=== PATIENT | female | born 1995 | race Caucasian/White ===

== ENCOUNTER 2016-11-04 00:20 | Emergency (ER) | payer OTHER ==
[~2016-11-04] VITALS: Ht 162.6 cm; Wt 60.4 kg
[2016-11-04 00:26] VITALS: Ht 162.6 cm; Wt 60.4 kg
[2016-11-04] MEDS ORDERED: AMT10 PO (00:45)
[2016-11-04] MEDS ORDERED: CRY28 PO (00:45)
[2016-11-04] MEDS ORDERED: KETOROLAC TROMETHAMINE 15 MG/ML VIAL IV STA (00:48)
[2016-11-04] MEDS ORDERED: ACETAMINOPHEN 500 MG TAB PO STA (00:48)
[2016-11-04] MEDS ORDERED: ONDANSETRON INJ 2 MG/ML 2 ML VIAL IV STA (00:48)
[2016-11-04] MEDS ORDERED: SODIUM CHLORIDE 0.9% 1000ML 1,000 ML IV STA ×2 (00:48→02:34)
[2016-11-04] MEDS ORDERED: KETOROLAC TROMETHAMINE 30 MG/ML VIAL ONE (00:52)
[2016-11-04 01:11] LABS: URINE APPEARANCE CLEAR (CLEAR); URINE BILIRUBIN NEG (NEG); URINE COLOR YELLOW; URINE NITRITE NEG (NEG); URINE PH 6.5 (4.5-7.5); URINE SPECIFIC GRAVITY 1.021 (1.000-1.030); UROBILINOGEN NEG (NEG); ZZUR CULT IF INDIC CLEAN CATCH NO
[2016-11-04 01:12] LABS: MANUAL MICROSCOPIC REQUIRED? NO; REVIEW REQ? NO
[2016-11-04 01:38] LABS: BASO % 0.1 %; BASO ABS # 0.02 K/uL (0-0.2); COMPLETE YES; EOS % 0.3 %; HEMATOCRIT 44.5 % (37-47); IG% 0.4 %; LYMPH % 7.4 %; LYMPH ABS # 1.01 K/uL (1.2-3.4); MEAN CELL VOLUME 92.3 fL (80-100); MEAN CORPUSCULAR HEMOGLOBIN 32.2 pg (25-34); MEAN CORPUSCULAR HGB CONC 34.8 g/dl (32-36); MEAN PLATELET VOLUME 9.4 fL (7.4-10.4); MONO % 3.7 %; NEUT % 88.1 %; PLATELET COUNT 313 K/uL (130-400); RED BLOOD COUNT 4.82 M/uL (4.2-5.4); WHITE BLOOD COUNT 13.69 K/uL (4.8-10.8)
[2016-11-04] MEDS ORDERED: ONDANSETRON 4MG OD TAB PO ONE (01:45)
[2016-11-04] MEDS ORDERED: KETOROLAC TROMETHAMINE 30 MG/ML VIAL IV STA (02:34)
[2016-11-04 02:54] LABS: BUN/CREATININE RATIO 11.6 (10-20); CALCIUM 8.4 mg/dl (8.5-10.1); CREATININE 0.85 mg/dl (0.60-1.20); POTASSIUM 3.6 mmol/L (3.5-5.1)
[2016-11-04] MEDS ORDERED: CEFD300C2 PO (04:06)
--- NOTE | 2016-11-04 04:06 | EMERGENCY ROOM VISIT NOTE ---
History First contact with patient: 00:34 Chief Complaint: FLU LIKE SX Stated Complaint: SORETHROAT,HEADACHE,FEVER,NAUSEOUS,STOMACH ACHE History of Present Illness The patient is a 21 year old female who presents to the Emergency Room with complaints of flulike symptoms. The patient states that she has had a cough for 2 days. She has also had a sore throat, nausea, headache and anterior neck pain. The symptoms have been present for 2 days. The patient reports that this when she had difficulty swallowing due to the pain. She is unsure if she has had a fever, but does feel feverish. She has been taking ibuprofen and adamantly for symptoms. She denies any abdominal pain, shortness of breath, urinary symptoms, or neck stiffness. Review of Systems A complete 10 point review of systems was reviewed with the patient with pertinent positives and negatives as per history of present illness. All else were negative. Past Medical/Surgical History Appendectomy Social History Smoking Status: Never Smoker Alcohol Use: occasionally Marital Status: single Housing Status: lives with roommate Occupation Status: [employer] student Current/Historical Medications Scheduled Amitriptyline HCl (Amitriptyline HCl), 10 MG PO HS Cefdinir (Omnicef), 300 MG PO Q12H Ethinyl Estradiol/Norgestrel (Cryselle-28), 1 TAB PO DAILY Physical Exam Vital Signs Date Time Temp Pulse Resp B/P (MAP) Pulse Ox O2 Delivery O2 Flow Rate FiO2 11/04/16 04:19 36.9 81 20 115/64 98 11/04/16 02:28 99 18 115/80 98 Room Air 11/04/16 00:26 37.4 109 22 119/79 98 Room Air Physical Exam VITALS: Vitals are noted on the nurse's note and reviewed by myself. Vital signs stable. GENERAL: This is a 21-year-old female, in no acute distress, nondiaphoretic, well-developed well-nourished. SKIN: The skin was without rashes. EARS: External auditory canals clear, tympanic membranes pearly vergara without erythema or effusion bilaterally. EYES: Pupils equal round and reactive to light and accommodation. NOSE: Patent, turbinates without inflammation or discharge. MOUTH: Mucous membranes moist. Tonsils mildly enlarged and erythematous bilaterally. No exudate. Airway patent. NECK: Supple without nuchal rigidity. Anterior cervical lymphadenopathy, right greater than left. No meningismus. HEART: Regular rate and rhythm without murmurs gallops or rubs. LUNGS: Clear to auscultation bilaterally without wheezes, rales or rhonchi. ABDOMEN: Soft, nontender to palpation. NEURO: Patient was alert and oriented to person place and time. Medical Decision & Procedures Laboratory Results 11/04/16 01:23 Red Blood Count 4.82, Mean Corpuscular Volume 92.3, Mean Corpuscular Hemoglobin 32.2, Mean Corpuscular Hemoglobin Concent 34.8, Mean Platelet Volume 9.4, Neutrophils (%) (Auto) 88.1, Lymphocytes (%) (Auto) 7.4, Monocytes (%) (Auto) 3.7, Eosinophils (%) (Auto) 0.3, Basophils (%) (Auto) 0.1, Neutrophils # (Auto) 12.06, Lymphocytes # (Auto) 1.01, Monocytes # (Auto) 0.51, Eosinophils # (Auto) 0.04, Basophils # (Auto) 0.02 11/04/16 02:30 Test 11/04/16 01:00 11/04/16 01:23 11/04/16 02:30 Urine Color YELLOW Urine Appearance CLEAR (CLEAR) Urine pH 6.5 (4.5-7.5) Urine Specific [place] 1.021 (1.000-1.030) Urine Protein NEG (NEG) Urine Glucose (UA) NEG (NEG) Urine Ketones 1+ (NEG) Urine Occult Blood NEG (NEG) Urine Nitrite NEG (NEG) Urine Bilirubin NEG (NEG) Urine Urobilinogen NEG (NEG) Urine Leukocyte Esterase NEG (NEG) Influenza Type A Antigen Neg for Influ A (NEG) Influenza Type B Antigen Neg for Influ B (NEG) White Blood Count 13.69 K/uL (4.8-10.8) Red Blood Count 4.82 M/uL (4.2-5.4) Hemoglobin 15.5 g/dL (12.0-16.0) Hematocrit 44.5 % (37-47) Mean Corpuscular Volume 92.3 fL (80-100) Mean Corpuscular Hemoglobin 32.2 pg (25-34) Mean Corpuscular Hemoglobin Concent 34.8 g/dl (32-36) Platelet Count 313 K/uL (130-400) Mean Platelet Volume 9.4 fL (7.4-10.4) Neutrophils (%) (Auto) 88.1 % Lymphocytes (%) (Auto) 7.4 % Monocytes (%) (Auto) 3.7 % Eosinophils (%) (Auto) 0.3 % Basophils (%) (Auto) 0.1 % Neutrophils # (Auto) 12.06 K/uL (1.4-6.5) Lymphocytes # (Auto) 1.01 K/uL (1.2-3.4) Monocytes # (Auto) 0.51 K/uL (0.11-0.59) Eosinophils # (Auto) 0.04 K/uL (0-0.5) Basophils # (Auto) 0.02 K/uL (0-0.2) RDW Standard Deviation 43.2 fL (36.4-46.3) RDW Coefficient of Variation 12.7 % (11.5-14.5) Immature Granulocyte % (Auto) 0.4 % Immature Granulocyte # (Auto) 0.05 K/uL (0.00-0.02) Anion Gap 11.0 mmol/L (3-11) Est Creatinine Clear Calc Drug Dose 90.5 ml/min Estimated GFR () 113.5 Estimated GFR (Non- 97.9 BUN/Creatinine Ratio 11.6 (10-20) Calcium Level 8.4 mg/dl (8.5-10.1) Total Bilirubin 0.6 mg/dl (0.2-1) Aspartate Amino Transf (AST/SGOT) 17 U/L (15-37) Alanine Aminotransferase (ALT/SGPT) 22 U/L (12-78) Alkaline Phosphatase 59 U/L (45-117) Total Protein 7.1 gm/dl (6.4-8.2) Albumin 3.6 gm/dl (3.4-5.0) Globulin 3.5 gm/dl (2.5-4.0) Albumin/Globulin Ratio 1.0 (0.9-2) Monoscreen NEG (NEG) Medications Administered Medications (Trade) Dose Ordered Sig/Claribel Route Start Time Stop Time Status Last Admin Dose Admin Acetaminophen (Tylenol Tab) 1,000 mg NOW STAT PO 11/04/16 00:48 11/04/16 00:50 DC 11/04/16 01:49 1,000 MG Ondansetron HCl (Zofran Odt) 4 mg ONE ONCE PO 11/04/16 01:45 11/04/16 01:54 DC 11/04/16 01:49 4 MG Sodium Chloride 1,000 ml @ 999 mls/hr Q1H1M STAT IV 11/04/16 02:34 11/04/16 03:34 DC 11/04/16 02:54 999 MLS/HR Ketorolac Tromethamine (Toradol Inj) 30 mg NOW STAT IV 11/04/16 02:34 11/04/16 02:35 DC 11/04/16 02:43 30 MG Cefdinir (Omnicef Cap) 300 mg ONE STAT PO 11/04/16 04:08 11/04/16 04:09 DC 11/04/16 04:17 300 MG ED Course The patient was evaluated as above. Labs were drawn and IV access was obtained. Patient was medicated with IV Toradol and Zofran. She was hydrated with normal saline solution. Patient was reevaluated and findings were discussed. Patient will be treated for strep pharyngitis based on physical exam. Discharge instructions were reviewed with patient. She verbalized understanding of my assessment and treatment plan was discharged home in good condition. Medical Decision Differential diagnosis includes strep pharyngitis, influenza, viral, mononucleosis, meningitis, among others. The patient is a 21-year-old female who presents today complaining of flulike symptoms. Labs revealed unremarkable with mild leukocytosis. Influenza was negative. Monospot was negative. Chest x-ray was negative. Strep swab was negative, culture pending. Patient was reevaluated after receiving the Toradol and fluids and stated that she felt much better. I am suspicious of strep pharyngitis given the patient's presentation and will place her on Omnicef for this pending the culture. I'm not highly suspicious of meningitis given that the patient's pain is anterior. The patient states she has had meningitis in the past and this does not feel similar. Based on the patient's presentation and work up, I feel the patient is stable for outpatient treatment. The patient was educated to return to the emergency department for any worsening of their current condition or new/concerning symptoms. She will follow up with [facility]. Medication Reconcilliation Current Medication List: was personally reviewed by me Blood Pressure Screening Patient's blood pressure: Normal blood pressure Impression Primary Impression: Pharyngitis Departure Information Dispostion Home / Self-Care Condition GOOD Prescriptions Cefdinir (OMNICEF) 300 Mg Cap 300 MG PO Q12H for 10 Days, #20 CAP Prov: Letty Harvey .GERARD 11/04/16 Referrals No Doctor, Assigned (PCP) Patient Instructions My [facility] Additional Instructions For pain/fever control, you can use the following [id number] medicines ( if >12 yo): - Regular strength (325mg/tab) Tylenol (acetaminophen) 2 tabs every 4-6 hours as needed. Do not exceed 12 tablets in a 24 hour period. Avoid taking more than 4 grams (4000 mg) of Tylenol per day. This includes any other sources of acetaminophen you may take on a regular basis. - Regular strength (200 mg/tab) Advil (ibuprofen) up to 3 tabs every 6 hours as needed. Do not exceed a dose of 3200 mg per day. You may alternate these medications as discussed for better control of fever/ pain. You were prescribed Omnicef to be taken twice daily as prescribed. This is an antibiotic. All antibiotics have the potential to cause diarrhea. Stop this medication and contact a medical provider if you were to develop any significant adverse side effects including: wheezing, shortness of breath, passing out, vomiting, or a diffuse rash. Always take antibiotics as directed and COMPLETE the ENTIRE course regardless of the improvement of your symptoms. Rest and drink plenty of fluids. Follow-up with [facility] for recheck this week. Return to the emergency department with any worsening or new/concerning symptoms. Problem Qualifiers Primary Impression: Pharyngitis Pharyngitis/tonsillitis etiology: unspecified etiology Qualified Codes: J02.9 - Acute pharyngitis, unspecified
[2016-11-04] MEDS ORDERED: CEFDINIR 300 MG CAP PO STA (04:08)
[2016-11-04 04:19] VITALS: BP 115/64; PULSE 81; TEMP 36.9; O2SAT 98
--- NOTE | 2016-11-04 07:21 | DIAGNOSTIC IMAGING REPORT ---
CHEST 2 VIEWS ROUTINE HISTORY: cough, fever COMPARISON: None. FINDINGS: The lungs are clear. Cardiac silhouette is normal in size. No pleural effusions. No pneumothorax. IMPRESSION: No acute process. Electronically signed by: Giancarlo Bridges M.D. 11/04/2016 7:20 AM Dictated Date/Time: 11/04/2016 7:19 AM
== END 2016-11-04 04:21 | disposition home or self-care (01) ==
LOC: C.EDB 00:22
DX: J02.9 Acute pharyngitis, unspecified (principal); Z79.3 Long term (current) use of hormonal contraceptives; Z79.899 Other long term (current) drug therapy